=== PATIENT | female | born 1955 | race Hispanic/Latino ===

== ENCOUNTER → 2022-02-23 | Outpatient (CLI) | payer MEDICARE | LOC: US 09:48 | PROVIDERS: ATTEND Urology | DX: N18.9 Chronic kidney disease, unspecified (principal); N39.0 Urinary tract infection, site not specified | CPT/HCPCS: 76770; 76857 ==

== ENCOUNTER → 2024-03-19 | Outpatient (REF) | payer MEDICARE, OTHER | LOC: US 10:18 | PROVIDERS: ATTEND Urology | DX: N39.0 Urinary tract infection, site not specified (principal) | CPT/HCPCS: 74018; 76770; 76857 ==